=== PATIENT | female | born 1980 | race Two or more races ===

== ENCOUNTER 2018-10-23 07:40 | Inpatient (IN) | payer OTHER ==
[~2018-10-23] VITALS: Ht 160 cm; Wt 49.9 kg
[2018-10-23 08:00] VITALS: BP 132/76
--- NOTE | 2018-10-23 08:00 | NUR ---
MS RN RECEIVED A NEW ADMISSION FROM [facility], [place], 38 YEAR OLD FEMALE, CAME IN W/ CC OF ABDOMINAL PAIN, DX OF CHOLELITHIASIS, AWAKE,ALERT,ORIENTED X4,VIA AMBULANCE, WILL MONITOR PATIENT.
[2018-10-23 08:15] VITALS: BP 132/76
--- NOTE | 2018-10-23 08:25 | NUR ---
MS FLUX CORE WELDER DONE, LYNDA CORTES FOR ADMISSION ORDER, IN THE MEETING AT THIS TIME.
[2018-10-23] MEDS ORDERED: MORPHINE SULFATE INJ 2 MG/ML DISP.SYRIN IV PRN (10:00)
[2018-10-23] MEDS ORDERED: ZOLPIDEM TARTRATE 5 MG TABLET PO PRN (10:00)
[2018-10-23] MEDS ORDERED: Z GUARD REMEDY 2 OZ OINT TP PRN (10:00)
[2018-10-23] MEDS ORDERED: HYDROCODONE/APAP 5/325MG 1 EACH TABLET PO PRN (10:00)
[2018-10-23] MEDS ORDERED: MAGNESIUM HYDROXIDE 30 ML UDC PO PRN (10:00)
--- NOTE | 2018-10-23 10:00 | NUR ---
MS MICHELLE WAS SEEN BY AUSTIN CORTES W/ ORDERS MADE AND CARRIED OUT.
[2018-10-23] MEDS: HYDROMORPHONE INJ 2 MG/ML DISP.SYRIN IV PRN ×2 (10:23→19:47)
[2018-10-23] MEDS: IV NS 0.9% 1,000 ML IV PRN (10:23)
[2018-10-23] MEDS ORDERED: Magnesium 1GM/D5W 100ML PREMIX 100 ML IV SCH (10:27)
[2018-10-23 11:01] LABS: BASOPHILS % (AUTO) 0.6 % (0.0-2.0); EOSINOPHILS % (AUTO) 1.8 % (0.0-6.0); HEMATOCRIT 36 % (33-45); HEMOGLOBIN 12.2 g/dL (11.5-14.8); LYMPHOCYTES % (AUTO) 12.2 % (20.0-44.0); MEAN CORPUSCULAR HGB CONC 34 g/dl (31.0-36.0); MEAN CORPUSCULAR VOLUME 81 fL (82-100); MONOCYTES # (AUTO) 0.4 /CMM (0.1-1.30); MONOCYTES % (AUTO) 5.2 % (2.0-12.0); NEUTROPHILS # (AUTO) 6.3 /CMM (1.8-8.9); NEUTROPHILS % (AUTO) 80.2 % (43.0-81.0); PLATELET COUNT (AUTO) 273 /CMM (150-450); RED BLOOD CELL COUNT(AUTO) 4.43 MIL/uL (4.0-5.2); WHITE BLOOD COUNT (AUTO) 7.9 K/uL (4.3-11.0)
[2018-10-23 11:19] LABS: ALBUMIN 3.3 g/dL (3.4-5.0); BILIRUBIN,TOTAL 0.9 mg/dL (0.2-1.0); CALCIUM, SERUM 8.8 mg/dL (8.5-10.1); CREATININE 0.8 mg/dL (0.6-1.3); TOTAL PROTEIN, SERUM 7.4 g/dL (6.4-8.2)
[2018-10-23 11:26] LABS: POTASSIUM 2.4 mmol/L (3.5-5.1)
[2018-10-23] MEDS ORDERED: PIPERACILLIN /TAZOBACTAM 3.375 G in IV D5W 50 ML IV ONE (12:00)
[2018-10-23] MEDS ORDERED: POTASSIUM CL. PREMIX PERIPHER. 50 ML IV SCH (13:00)
--- NOTE | 2018-10-23 14:00 | NUR ---
MS RN COMPLETED HIDA SCAN, STILL PENDING RESULT, DENIES PLAIN AT THIS TIME, AFTER GIVING DILAUDID 2MG IV AT 1100 AM.
--- NOTE | 2018-10-23 15:00 | NUR ---
MS RN CHANGED IV SITE TO RIGHT HAND G22 W/ [place] VENOUS RETURN.
[2018-10-23 16:03] VITALS: BP 141/71
[2018-10-23] MEDS: PIPERACILLIN /TAZOBACTAM 3.375 G in IV D5W 100 ML IV SCH (18:02)
[2018-10-23] MEDS: Potassium Chloride 10 MEQ, LIDOCAINE HCL/PF 1% 1 ML in IV D5W 50 ML IV SCH ×3 (18:38→21:01)
--- NOTE | 2018-10-23 18:46 | NUR ---
MS RN CANNOT TOLERATE IV K, TEXTED AUSTIN TO PUT ORDER W/ LIDOCANE.
--- NOTE | 2018-10-23 18:47 | NUR ---
MS RN STARTED 2ND BAG OF POTASSIUM,ALL NEEDS ATTENDED. WILL ENDORSED TO MAILROOM COURIER THE 2 BAGS TO COMPLETE IV POTASSIUM.
--- NOTE | 2018-10-23 19:30 | NUR ---
MSRN SEEN GOING BACK TO BED FROM RESTROOM. VERBALIZES PAIN ON HER BACK. DENIES ABD DISCOMFORTS,, NO N/V. VERBALIZES RIGHT HAND PAIN FROM K REPLACEMENT. RIGHT HAND HL 22 GAUGE PATENT, HAVE EXISTING MAINTENANCE IVF NS AT 100 CC/HR, K IV AT 56CC/HR 2ND BAG INFUSING SEPARATELY, INFUSING AT THE SAME TIME, FOR LESS PAIN ON IV SITE. REVIEWED PAIN MGT WITH PATIENT, APPEARS TO UNDERSTAND. DILAUDED 2 MG IVP ADMINISTERED AT 1947 FOR SEVERE BACK PAIN PATIENT STATED. BEDREST INSTRUCTED, V/S STABLE. CLOSELY WATCHED.
[2018-10-23 20:20] VITALS: BP 134/70
--- NOTE | 2018-10-23 21:30 | NUR ---
MSRN INSISTED TO HAVE [place], [place] [employer] PROVIDED, NO NAUSE/VOMITTING. TOLERATED WELL. IVF CONTINUED.
[2018-10-24] MEDS: PIPERACILLIN /TAZOBACTAM 3.375 G in IV D5W 100 ML IV SCH ×3 (01:24→17:41)
[2018-10-24] MEDS: IV NS 0.9% 1,000 ML IV PRN (02:08)
--- NOTE | 2018-10-24 02:13 | NUR ---
MSRN REMAINS PAINFREE SINCE LAST DOSE OF DILAUDED. WAKES UP ON/OFF. NO NEEDS MADE
--- NOTE | 2018-10-24 03:50 | NUR ---
MSRN AWAKENED, PATIENT MOANING, VERBALIZES ABD AND BACK PAIN. DILAUDED 2 MG IVP ADMINISTERED. BEDREST INSTRUCTED IVF CONTINUED.
[2018-10-24] MEDS: HYDROMORPHONE INJ 2 MG/ML DISP.SYRIN IV PRN ×3 (03:51→19:32)
[2018-10-24 06:24] LABS: BASOPHILS % (AUTO) 0.2 % (0.0-2.0); EOSINOPHILS % (AUTO) 0.4 % (0.0-6.0); HEMATOCRIT 35 % (33-45); HEMOGLOBIN 11.5 g/dL (11.5-14.8); LYMPHOCYTES % (AUTO) 8.9 % (20.0-44.0); MEAN CORPUSCULAR HGB CONC 33 g/dl (31.0-36.0); MEAN CORPUSCULAR VOLUME 82 fL (82-100); MONOCYTES # (AUTO) 0.7 /CMM (0.1-1.30); MONOCYTES % (AUTO) 5.8 % (2.0-12.0); NEUTROPHILS # (AUTO) 9.8 /CMM (1.8-8.9); NEUTROPHILS % (AUTO) 84.7 % (43.0-81.0); PLATELET COUNT (AUTO) 268 /CMM (150-450); RED BLOOD CELL COUNT(AUTO) 4.21 MIL/uL (4.0-5.2); WHITE BLOOD COUNT (AUTO) 11.6 K/uL (4.3-11.0)
--- NOTE | 2018-10-24 06:31 | NUR ---
MSRN RELIEF FROM DILAUDED. SLEEPING EASILY AROUSABLE. CLOSELY WATCHED
[2018-10-24 06:53] LABS: CALCIUM, SERUM 8.2 mg/dL (8.5-10.1); CREATININE 1.1 mg/dL (0.6-1.3); MAGNESIUM 1.5 mg/dL (1.8-2.4); PHOSPHORUS 3.2 mg/dL (2.5-4.9)
[2018-10-24 07:03] LABS: POTASSIUM 2.6 mmol/L (3.5-5.1)
--- NOTE | 2018-10-24 07:35 | NUR ---
MS RN RECEIVED ON BED. AWAKE, ALERT,ORIENTED X4,NOT IN ANY FORM OF DISTRESS, RESPIRATIONS EVEN AND UNLABORED,NO SOB NOTED, DENIES PAIN AT THIS TIME, ALL NEEDS ATTENDED.
[2018-10-24 08:00] VITALS: BP 121/71
--- NOTE | 2018-10-24 08:00 | NUR ---
MS RN PATIENT ON CLEAR LIQUIDS, NPO AFTER BREAKFAST, FOR SURGERY TODAY , REMOVAL OF GALL BLADDER BY DR. BRITTON.
--- NOTE | 2018-10-24 09:00 | NUR ---
MS RN NPO AT THIS TIME,ALL NEEDS ATTENDED.
[2018-10-24] MEDS: Potassium Chloride 40 MEQ in IV NS 0.9% 1,000 ML IV PRN (09:22)
--- NOTE | 2018-10-24 11:00 | NUR ---
MS RN WAITING FOR OR SCHED.
[2018-10-24] MEDS: Potassium Chloride 10 MEQ, LIDOCAINE HCL/PF 1% 1 ML in IV D5W 50 ML IV SCH ×2 (11:44→12:27)
[2018-10-24] MEDS: ONDANSETRON HCL/PF 4 MG/2 ML VIAL IVP PRN (11:57)
--- NOTE | 2018-10-24 15:00 | NUR ---
MS RN RECHECKED POTASSIUM LEVEL, 2.6, OR NOTIFIED.
[2018-10-24] MEDS: Magnesium 1GM/D5W 100ML PREMIX 100 ML IV SCH ×2 (15:02→16:11)
--- NOTE | 2018-10-24 15:10 | NUR ---
MS MICHELLE BRITTON CANCELLED SURGERY DUE TO LOW K LEVEL, WILL RECHECK IN AM.
[2018-10-24 16:00] VITALS: BP 137/85
--- NOTE | 2018-10-24 18:36 | NUR ---
MS RN ON BED, NO DISTRESS NOTED.
--- NOTE | 2018-10-24 19:15 | NUR ---
MS RN NOTE RECEIVED PT IN STABLE CONDITION A&O X4, ABLE TO MAKE NEEDS KNOWN. CURRENTLY IN BED. NO SIGNS OF SOB OR DISTRESS, NO C/O PAIN. IV IN L HAND IN PLACE WITH IVF INFUSING, TOLERATING WELL. PT WILL BE NPO AT MIDNIGHT FOR POSS CHOLECYSTECTOMY IN AM. ALL CURRENT NEEDS KNOWN. BED LOW, LOCKED, UPPER RAILS UP, AND CALL LIGHT WITHIN REACH. WILL CONT. TO MONITOR.
--- NOTE | 2018-10-24 19:32 | NUR ---
MS RN NOTE PT C/O ABD PAIN 12/01. DILAUDID 2 MG IV GIVEN. WILL CONT. TO MONITOR.
[2018-10-24 20:00] VITALS: BP 117/63
[2018-10-25] MEDS: PIPERACILLIN /TAZOBACTAM 3.375 G in IV D5W 100 ML IV SCH ×2 (00:49→09:13)
[2018-10-25] MEDS: HYDROMORPHONE INJ 2 MG/ML DISP.SYRIN IV PRN ×5 (01:22→22:40)
--- NOTE | 2018-10-25 01:22 | NUR ---
MS RN NOTE PRN DILAUDID 2 MG IV GIVEN FOR PAIN 9/10 LOCATED IN MEDIAL ABD. WILL CONT. TO MONITOR.
--- NOTE | 2018-10-25 05:35 | NUR ---
MS RN NOTE PRN DILAUDID 2 MG GIVEN FOR PAIN 01/01 IN MEDIAL ABD. WILL CONT. TO MONITOR.
--- NOTE | 2018-10-25 06:25 | NUR ---
MS RN NOTE PT IN STABLE CONDITION A&O X4, ABLE TO MAKE NEEDS KNOWN. CURRENTLY IN BED, RESING. NO SIGNS OF SOB OR DISTRESS, NO C/O PAIN. IV IN R FA IN PLACE WITH IVF INFUSING, TOLERATING WELL. CURRENTLY NPO SINCE MIDNIGHT FOR POSS CHOLECYSTECTOMY DEPENDING ON AM LABS. ALL CURRENT NEEDS KNOWN. BED LOW, LOCKED, UPPER RAILS UP, AND CALL LIGHT WITHIN REACH. WILL CONT. TO MONITOR AND ENDORSE TO NEXT SHIFT FOR GILDA.
[2018-10-25 06:42] LABS: BASOPHILS # (AUTO) 0.1 /CMM (0.0-0.2); BASOPHILS % (AUTO) 0.5 % (0.0-2.0); EOSINOPHILS % (AUTO) 0.4 % (0.0-6.0); HEMATOCRIT 32 % (33-45); HEMOGLOBIN 10.9 g/dL (11.5-14.8); LYMPHOCYTES % (AUTO) 8.9 % (20.0-44.0); MEAN CORPUSCULAR HGB CONC 34 g/dl (31.0-36.0); MEAN CORPUSCULAR VOLUME 82 fL (82-100); MONOCYTES # (AUTO) 0.5 /CMM (0.1-1.30); MONOCYTES % (AUTO) 4.3 % (2.0-12.0); NEUTROPHILS # (AUTO) 9.9 /CMM (1.8-8.9); NEUTROPHILS % (AUTO) 85.9 % (43.0-81.0); PLATELET COUNT (AUTO) 237 /CMM (150-450); RED BLOOD CELL COUNT(AUTO) 3.96 MIL/uL (4.0-5.2); WHITE BLOOD COUNT (AUTO) 11.6 K/uL (4.3-11.0)
[2018-10-25 06:51] LABS: CALCIUM, SERUM 8.8 mg/dL (8.5-10.1); CREATININE 1.2 mg/dL (0.6-1.3); MAGNESIUM 2.1 mg/dL (1.8-2.4); PHOSPHORUS 2.8 mg/dL (2.5-4.9)
[2018-10-25 06:56] LABS: POTASSIUM 2.7 mmol/L (3.5-5.1)
--- NOTE | 2018-10-25 07:09 | NUR ---
MS RN NOTE RECEIVED CRITICAL LAB RESULT K:2.7 FROM LAB. CALLED [facility] CUSTOMER CARE MANAGER TO NOTIFY MD. AWAITING CALL BACK.
--- NOTE | 2018-10-25 07:30 | NUR ---
MS RN RECEIVED ON BED, AWAKE,ALERT,ORIENTED X4,NOT IN ANY FORM OF DISTRESS,RESPIRATIONS EVEN AND UNLABORED,NO SOB NOTED, LUNGS ARE CLEAR,ABDOMEN SOFT,POSITIVE BOWEL SOUNDS,DENIES PAIN AT THIS TIME.WILL MONITOR PATIENT'S CONDITION.
--- NOTE | 2018-10-25 07:45 | NUR ---
MS NR K LEVEL 2.7, DR. BRITTON CANCELLED SURGERY, TO REPLACE POTASSIUM, AWAITING FOR MD TO CALL BACK.
[2018-10-25 08:00] VITALS: BP 141/77
[2018-10-25] MEDS ORDERED: POTASSIUM CHLORIDE 20 MEQ TAB.PRT.SR PO ONE (09:30)
[2018-10-25] MEDS: Potassium Chloride 40 MEQ in IV NS 0.9% 1,000 ML IV PRN ×2 (09:46→20:48)
[2018-10-25] MEDS: ONDANSETRON HCL/PF 4 MG/2 ML VIAL IVP PRN ×2 (09:46→17:10)
[2018-10-25] MEDS: Potassium Chloride 10 MEQ, LIDOCAINE HCL/PF 1% 1 ML in IV D5W 50 ML IV SCH ×2 (11:07→12:22)
--- NOTE | 2018-10-25 15:00 | NUR ---
MS MARTINEZ K PO GIVEN AND REPLACED W/ IV'S.
[2018-10-25 16:00] VITALS: BP 147/86
[2018-10-25 17:03] LABS: CALCIUM, SERUM 9.1 mg/dL (8.5-10.1); CREATININE 1.2 mg/dL (0.6-1.3); POTASSIUM 3.2 mmol/L (3.5-5.1)
[2018-10-25] MEDS: PIPERACILLIN /TAZOBACTAM 3.375 G in IV D5W 50 ML IV SCH ×2 (17:19→23:33)
--- NOTE | 2018-10-25 18:00 | NUR ---
MS MICHELLE RECHECKED K - 3.2 TEXTED A[place]IN W/ ORDERS MADE AND CARRIED OUT.
--- NOTE | 2018-10-25 19:11 | NUR ---
MS RN RECEIVE PT WATCHING TV A/O X 4 CALM NO S/S OF DISTRESS, RESPIRATIONS EVEN AND UNLABORED, SAFETY MEASURES IN PLACE. WILL CONTINUE TO MONITOR
[2018-10-25 20:00] VITALS: BP 141/79
[2018-10-25] MEDS: POTASSIUM CHLORIDE 20 MEQ TAB.PRT.SR PO SCH (20:47)
[2018-10-25 23:30] LABS: APPEARANCE,URINE TURBID (CLEAR); BILIRUBIN,URINE NEGATIVE (NEGATIVE); BLOOD, URINE 1+ Ery/uL (NEGATIVE); COLOR,URINE ORANGE (YELLOW); KETONES,URINE TRACE (NEGATIVE); LEUKOCYTE ESTERASE ,URINE NEGATIVE (NEGATIVE); NITRITE, URINE NEGATIVE (NEGATIVE); PROTEIN,URINE 2+ mg/dl (NEGATIVE); UGLUCOSE NEGATIVE (NEGATIVE)
[2018-10-25 23:38] LABS: BACTERIA,URINE Few /HPF (None Seen); SQUAMOUS EPITHELIAL CELL,UR Few /HPF (None Seen); URINE AMORPHOUS URATE Many /HPF (None Seen); WBC,URINE 0-2 /HPF (0-3)
[2018-10-26] VITALS (9 sets, daily range): BP systolic 108–134; BP diastolic 56–78
[2018-10-26] MEDS: HYDROMORPHONE INJ 2 MG/ML DISP.SYRIN IV PRN ×4 (02:47→22:33)
[2018-10-26] MEDS: PIPERACILLIN /TAZOBACTAM 3.375 G in IV D5W 50 ML IV SCH ×3 (05:04→17:53)
--- NOTE | 2018-10-26 06:10 | NUR ---
MS RN ASLEEP AND EASILY AWAKEN, MAINTAINS NPO AT MIDNIGHT PER M.D. RESPIRATIONS EVEN AND UNLABORED. SLEPT WELL THROUGHOUT THE NIGHT. KEPT CLEAN AND DRY AND COMFORTABLE. NEEDS ATTENDED AND ANTICIPATED, PAIN MEDICATED WITH PRN PAIN MEDICATION WITH RELIEF. SAFETY MEASURES AT ALL TIMES. ENDORSE TO THE NEXT SHIFT.
[2018-10-26 06:39] LABS: CALCIUM, SERUM 8.4 mg/dL (8.5-10.1); MAGNESIUM 1.7 mg/dL (1.8-2.4); PHOSPHORUS 1.8 mg/dL (2.5-4.9); POTASSIUM 3.6 mmol/L (3.5-5.1)
[2018-10-26 06:44] LABS: BASOPHILS % (AUTO) 0.3 % (0.0-2.0); EOSINOPHILS % (AUTO) 0.6 % (0.0-6.0); HEMATOCRIT 31 % (33-45); LYMPHOCYTES # (AUTO) 0.7 /CMM (0.8-4.8); LYMPHOCYTES % (AUTO) 7.6 % (20.0-44.0); MEAN CORPUSCULAR HGB CONC 33 g/dl (31.0-36.0); MEAN CORPUSCULAR VOLUME 83 fL (82-100); MONOCYTES # (AUTO) 0.7 /CMM (0.1-1.30); MONOCYTES % (AUTO) 7.4 % (2.0-12.0); NEUTROPHILS # (AUTO) 8.1 /CMM (1.8-8.9); NEUTROPHILS % (AUTO) 84.1 % (43.0-81.0); PLATELET COUNT (AUTO) 213 /CMM (150-450); RED BLOOD CELL COUNT(AUTO) 3.68 MIL/uL (4.0-5.2); WHITE BLOOD COUNT (AUTO) 9.6 K/uL (4.3-11.0)
--- NOTE | 2018-10-26 07:27 | NUR ---
MS RN OPENING NOTES PATIENT IN AWAKE IN BED RESTING. PATIENT BREATHING ON ROOM AIR SATURATING >95% O2. PATIENT BREATHING IS EVEN AND UNLABORED. PATIENT IN NO ACUTE DISTRESS. NO SOB NOTED. NPO STATUS MAINTAINED. PATIENT AWAITING SCHEDULED SURGERY AT 0930. PATIENT BED IS LOCKED AND IN LOWEST POSITION. SAFETY PRECAUTIONS IN PLACE. PATIENT CALL LIGHT WITHIN REACH. WILL CONTINUE TO MONITOR.
--- NOTE | 2018-10-26 09:00 | NUR ---
MS RN NOTES PER JUDICIAL ADMINISTRATIVE ASSISTANT [place]IN CORTES AND SURGERY GIVE KDUR 60 MEQ ORDERED. PATIENT IN NO ACUTE DISTRESS. WILL CONTINUE TO MONITOR.
[2018-10-26] MEDS: POTASSIUM CHLORIDE 20 MEQ TAB.PRT.SR PO SCH (09:01)
--- NOTE | 2018-10-26 09:30 | NUR ---
MS RN NOTES PATIENT HEADED FOR SURGERY. CONSENT AND PRECHECKLIST IN CHART. VITAL SIGNS STABLE. PATIENT IN NO ACUTE DISTRESS.
[2018-10-26] MEDS: Magnesium 1GM/D5W 100ML PREMIX 100 ML IV SCH ×4 (10:00→16:11)
[2018-10-26] MEDS ORDERED: BUPIVACAINE 0.5 % PF 150 MG/30 ML VIAL ONE (10:06)
[2018-10-26] MEDS ORDERED: FENTANYL PF 250MCG/5ML AMPUL ONE ×2 (10:30)
[2018-10-26] MEDS ORDERED: MIDAZOLAM HCL 2 MG/2ML VIAL ONE (10:30)
[2018-10-26] MEDS ORDERED: ROCURONIUM BROMIDE 50 MG/5 ML ONE (10:31)
[2018-10-26] MEDS ORDERED: FAMOTIDINE/PF INJ 20 MG/2 ML VIAL IV ONE (10:31)
[2018-10-26] MEDS ORDERED: BUPIVACAINE MPF 0.5% W/EPI INJ 30 ML VIAL ONE (10:32)
--- NOTE | 2018-10-26 13:26 | NUR ---
MS RN NOTES RECEIVED PATIENT FROM SURGERY. PATIENT IN BED SLEEPING. PATIENT BREATHING ON OXYGEN NC >95% 02. PATIENT VITAL SIGNS WNL. PATIENT IN NO ACUTE DISTRESS. JAMIE DRAIN NOTED. WILL CARRY OUT NEW ORDERS. WILL CONTINUE TO MONITOR.
--- NOTE | 2018-10-26 14:55 | NUR ---
MS RN NOTES PATIENT VITALS ARE WNL. PATIENT IS SLEEPING INTERMITTENTLY. PATIENT VERBALIZES NEEDS. NEEDS ADDRESSED. PATIENT WOUND DRESSINGS DRY AND INTACT. WILL CONTINUE TO MONITOR.
[2018-10-26] MEDS ORDERED: K PHOS NEUTRAL 250 MG TABLET PO ONE (17:30)
--- NOTE | 2018-10-26 18:41 | NUR ---
MS RN CLOSING NOTES PATIENT IN BED RESTING COMFORTABLY. PATIENT NO LONGER ON NC 2L, PATIENT STATES SHE DOES NOT NEED IT ANYMORE. PATIENT IS BREATHING ON ROOM AIR AND SATURATING >95% O2. PATIENT BREATHING IS EVEN AND UNLABORED. NO SOB NOTED. JAMIE DRAIN EMPTIED 60CC, SEROSANGUINEOUS. DRESSINGS DRY AND INTACT. ALL NURSING NEEDS MET. PATIENT KEPT CLEAN AND DRY. PATIENT VERBALIZED NEEDS AND NEED ADDRESSED. IV IS INTACT. PATIENT IS NO PAIN AT THIS TIME. PATIENT BED IS LOCKED AND IN LOWEST POSITION. CALL LIGHT WITHIN REACH. WILL ENDORSE CARE TO PM SHIFT FOR GILDA.
--- NOTE | 2018-10-26 19:00 | NUR ---
RN noy opening notes Received Pt from morning nurse. Pt is alert and oriented X4. Pt is awake and laying in bed comfortably. Respiration is normal. NO SOB. No nausea or vomiting. Pt denies pain or discomfort at this time. IV sites R hand # 22 is intact, patent and infusing well. JAMIE drain at right stomach is intact, and patent. Dressing on the abdomen clean, dry and intact. Informed and instructed Pt to use incentive spirometer. Pt verbalize understanding. Instructed to call. Safety precautions is maintained. Bed at low position, brakes on, bed side rails upX2 and call light is within reach. Will continue for GILDA.
--- NOTE | 2018-10-26 22:43 | NUR ---
RN medsurg notes Administered Dilaudid 2 mg as ordered for abdominal pain 9/10 on pain scale per Pt requested. Instructed to call and will continue to monitor.
--- NOTE | 2018-10-26 23:59 | NUR ---
RN medsurg notes Pt is resting in laying in bed comfortably with eyes closed. Awaken easily. No SOB. No S/S of distress noted. Instructed to call. Call light is within reach. Will continue to monitor.
--- NOTE | 2018-10-27 | NUR ---
RN medsur notes Unable to mixed Zosyn because the liquid got stuck into the vial and hard to pulled the liquid from the vial. Able to used Zosyn from 10/26/18 (due at 1200). Informed and notified the charge nurse MICHELLE Montero and agreed to use it.
[2018-10-27] MEDS: PIPERACILLIN /TAZOBACTAM 3.375 G in IV D5W 50 ML IV SCH ×5 (00:06→23:04)
--- NOTE | 2018-10-27 01:00 | NUR ---
MICHELLE villafuerte notes Pt is awake and laying in bed comfortably. Instructed and informed Pt to use incentive spirometer. Explained the benefits of using incentive spirometer. Pt agreed and used 10 times. Pt verbalized understanding and tolerated activity well. Will continue to monitor.
[2018-10-27 02:49] VITALS: BP 141/81
[2018-10-27] MEDS: HYDROMORPHONE INJ 2 MG/ML DISP.SYRIN IV PRN ×5 (02:52→20:47)
--- NOTE | 2018-10-27 02:52 | NUR ---
RN medsurangela notes Pt is complaining of abdominal pain 9/10 on pain scale. Administered Dilaudid 2mg IV push as ordered. VS as follows: BP 141/81, P 76, RESP 18, TEMP 98.0, O2 SAT 99% in room air. Instructed to call. Will continue to monitor.
--- NOTE | 2018-10-27 06:53 | NUR ---
RN medsurg closing notes Pt is alert and oriented x4. Pt is laying in bed comfortably. No SOB. No nausea or vomiting. VS is stable. Afebrile. IV sites at right hand is intact, patent and infusing well. JAMIE drain on right abdomen drain 40 ml serousanguines. Instructed to use incentive spirometer. Pt tolerated activity well. Routine meds were given including pain meds as ordered. All needs met. Safety precautions is maintained. Bed at low position and call light is within reach. Will endorse to morning nurse for GILDA.
[2018-10-27 06:58] LABS: BASOPHILS % (AUTO) 0.1 % (0.0-2.0); HEMATOCRIT 29 % (33-45); HEMOGLOBIN 9.5 g/dL (11.5-14.8); LYMPHOCYTES # (AUTO) 0.8 /CMM (0.8-4.8); LYMPHOCYTES % (AUTO) 8.6 % (20.0-44.0); MEAN CORPUSCULAR HGB CONC 33 g/dl (31.0-36.0); MEAN CORPUSCULAR VOLUME 83 fL (82-100); MONOCYTES # (AUTO) 0.6 /CMM (0.1-1.30); MONOCYTES % (AUTO) 6.5 % (2.0-12.0); NEUTROPHILS # (AUTO) 7.8 /CMM (1.8-8.9); NEUTROPHILS % (AUTO) 84.8 % (43.0-81.0); PLATELET COUNT (AUTO) 250 /CMM (150-450); RED BLOOD CELL COUNT(AUTO) 3.45 MIL/uL (4.0-5.2); WHITE BLOOD COUNT (AUTO) 9.2 K/uL (4.3-11.0)
[2018-10-27 07:19] LABS: ALBUMIN 2.1 g/dL (3.4-5.0); BILIRUBIN,TOTAL 0.5 mg/dL (0.2-1.0); CALCIUM, SERUM 8.9 mg/dL (8.5-10.1); CREATININE 1.2 mg/dL (0.6-1.3); PHOSPHORUS 2.5 mg/dL (2.5-4.9); POTASSIUM 4.3 mmol/L (3.5-5.1); TOTAL PROTEIN, SERUM 6.6 g/dL (6.4-8.2)
--- NOTE | 2018-10-27 07:30 | NUR ---
RN OPENING NOTE PT WAS RECEIVED RESTING IN BED AT LOWEST AND LOCKED POSITION WITH SIDE RAILS UP X2, A/OX4 BREATHING EVEN AND UNLABORED ON RA, NO S/S OF ANY DISTRESS OR PAIN NOTED AT THIS TIME, IV IS PATENT AND INTACT, NOTED TO HAVE JAMIE DRAIN ON RIGHT SIDE OF ABD, S/P CHOLECYSTECTOMY ON 10/26, SAFETY PRECAUTIONS IN PLACE, CALL LIGHT WITHIN REACH, WILL MONITOR PT ACCORDINGLY
--- NOTE | 2018-10-27 07:49 | NUR ---
RN NOTE PT COMPLAINING OF PAIN OF 9 OUT OF 10 ON RIGHT SIDE OF ABD, PRN DOSE OF DILAUDID GIVEN AT THIS TIME, WILL MONITOR PT ACCORDINGLY
[2018-10-27 08:00] VITALS: BP 147/81
[2018-10-27] MEDS: POTASSIUM CHLORIDE 20 MEQ TAB.PRT.SR PO SCH (08:02)
[2018-10-27] MEDS: Potassium Chloride 40 MEQ in IV NS 0.9% 1,000 ML IV PRN (15:18)
[2018-10-27 16:00] VITALS: BP 134/93
--- NOTE | 2018-10-27 18:24 | NUR ---
RN CLOSING NOTE PT IN BED AT LOWEST AND LOCKED POSITION WITH SIDE RAILS UP X2, BREATHING EVEN AND UNLABORED ON RA, NO S/S OF ANY DISTRESS OR PAIN AT THIS TIME, IV IS PATENT AND INTACT, JAMIE DRAIN ON RIGHT SIDE OF ABD WITH 35 ML OUT THIS SHIFT, SAFETY PRECAUTIONS IN PLACE, CALL LIGHT WITHIN REACH, ALL NEEDS ATTENDED TO. WILL ENDORSE TO NIGHT RN FOR GILDA.
--- NOTE | 2018-10-27 19:25 | NUR ---
MS/RN OPENING NOTES PT RECEIVED ASLEEP, RESPONSIVE TO NAME. A/OX4. ON ROOM AIR, BREATHING EVEN AND UNLABORED. DENIES SOB, IN NO ACUTE RESPIRATORY DISTRESS AT THIS TIME. C/O 5/10 ABDOMINAL PAIN BUT IS TOLERABLE AT THIS TIME. WANTS TO WAIT UNTIL HER NEXT DOSE OF IV DILAUDID. ABDOMINAL INCISIONS TO UMBILICUS, MEDIAL UPPER ABDOMEN, RIGHT UPPER ABDOMEN ALL COVERED WITH SURGICAL DRESSING, NO SIGNS OF BLEEDING NOTED. JAMIE DRAIN TO RIGHT LATERAL ABDOMEN IN PLACE AND DRAINING SANGUINOUS FLUID. PT DENIES HAVING FLATUS AND BM AT THIS TIME. IV TO RIGHT HAND PATENT AND INTACT RUNNING IVF ORDERED. DVT PUMPS ON. BED IN LOW/LOCKED POSITION WITH CALL LIGHT IN REACH. HOB ELEVATED AND BILAT. UPPER SIDE RAILS IN PLACE. WILL CONTINUE TO MONITOR
[2018-10-27 20:00] VITALS: BP 150/86
[2018-10-27] MEDS: ACETAMINOPHEN 325 MG TABLET PO PRN (23:04)
[2018-10-28] MEDS: Potassium Chloride 40 MEQ in IV NS 0.9% 1,000 ML IV PRN (04:41)
[2018-10-28] MEDS: HYDROMORPHONE INJ 2 MG/ML DISP.SYRIN IV PRN ×4 (05:00→21:38)
[2018-10-28] MEDS: PIPERACILLIN /TAZOBACTAM 3.375 G in IV D5W 50 ML IV SCH ×3 (05:39→18:11)
[2018-10-28] MEDS: ACETAMINOPHEN 325 MG TABLET PO PRN (07:03)
--- NOTE | 2018-10-28 07:15 | NUR ---
MS/RN NOTE THE PATIENT IS RECEIVED IN BED. ALERT AND ORIENTED X4. ABDOMINAL INCISION WITH DRESSINGS. NO BLEEDING AND DISCHARGE NOTED. RIGHT HAND G 22 AND LEFT WRIST G 20 PATENT AND SALINE LOCKED. BED LOW AND LOCKED. SIDE RAILS UP X3. CALL LIGHT WITHIN REACH. WILL CONTINUE TO MONITOR.
[2018-10-28 07:18] LABS: BASOPHILS % (AUTO) 0.4 % (0.0-2.0); EOSINOPHILS % (AUTO) 1.8 % (0.0-6.0); HEMATOCRIT 28 % (33-45); HEMOGLOBIN 9.1 g/dL (11.5-14.8); LYMPHOCYTES # (AUTO) 1.3 /CMM (0.8-4.8); LYMPHOCYTES % (AUTO) 17.9 % (20.0-44.0); MEAN CORPUSCULAR HGB CONC 33 g/dl (31.0-36.0); MEAN CORPUSCULAR VOLUME 83 fL (82-100); MONOCYTES # (AUTO) 0.6 /CMM (0.1-1.30); MONOCYTES % (AUTO) 8.6 % (2.0-12.0); NEUTROPHILS # (AUTO) 5.3 /CMM (1.8-8.9); NEUTROPHILS % (AUTO) 71.3 % (43.0-81.0); PLATELET COUNT (AUTO) 254 /CMM (150-450); RED BLOOD CELL COUNT(AUTO) 3.34 MIL/uL (4.0-5.2); WHITE BLOOD COUNT (AUTO) 7.4 K/uL (4.3-11.0)
--- NOTE | 2018-10-28 07:24 | NUR ---
MS/RN CLOSING NOTES PT AWAKE, RESTING COMFORTABLY IN BED. REAMAINS ON ROOM AIR, BREATHING EVEN AND UNLABORED. DENIES SOB, ABDOMINAL PAIN MANAGED WITH IV DILAUDID AND TYLENOL. ABDOMINAL INCISIONS WITH SURGICAL DRESSINGS REMAIN C/D/I. NO BLEEDING NOTED. JAMIE DRAIN TO RIGHT LATERAL ABDOMEN IN PLACE AND DRAINING SANGUINOUS FLUID, 20 CC OUT. PT DENIES HAVING FLATUS AND BM DURING SHIFT. IV TO RIGHT HAND PATENT AND INTACT RUNNING IVF ORDERED. IV TO LEFT WRIST PATENT AND INTACT. DVT PUMPS OFF AT THIS TIME PER PT REQUEST. ASSISTED TO BSC. BED IN LOW/LOCKED POSITION WITH CALL LIGHT IN REACH. HOB ELEVATED AND BILAT. UPPER SIDE RAILS IN PLACE. WILL ENDORSE TO DAY SHIFT RN GILDA.
[2018-10-28 07:38] LABS: CALCIUM, SERUM 8.5 mg/dL (8.5-10.1); MAGNESIUM 1.7 mg/dL (1.8-2.4); PHOSPHORUS 3.1 mg/dL (2.5-4.9)
[2018-10-28 08:00] VITALS: BP 156/93
--- NOTE | 2018-10-28 08:00 | NUR ---
MS/RN NOTE JAMIE DRAIN REMOVED BY DR BRITTON. THE PATIENT TOLERATED IT WELL.
[2018-10-28 08:32] VITALS: BP 156/93
[2018-10-28 09:00] VITALS: BP 142/84
[2018-10-28] MEDS: Magnesium 1GM/D5W 100ML PREMIX 100 ML IV SCH ×2 (09:40→10:49)
[2018-10-28] MEDS: POTASSIUM CHLORIDE 20 MEQ TAB.PRT.SR PO SCH (09:47)
[2018-10-28] MEDS ORDERED: CEPH-570 PO (14:54)
[2018-10-28 16:51] VITALS: BP 157/99
--- NOTE | 2018-10-28 18:33 | NUR ---
MS/RN NOTE THE PATIENT ALERT AND ORIENTED X4. IN ROOM AIR AND SATURATION IS AT 97%. DENIES SOB. RESPIRATION REGULAR AND UNLABORED. DENIES PAIN. RIGHT HAND G 20 PATENT AND IV ANTIBIOTIC INFUSING PER ORDER AND NO S/S INFILTRATION NOTED. BED LOW AND LOCKED. SIDE RAILS UP X3. CALL LIGHT WITHIN REACH. WILL ENDORSE TO REPRODUCTION ORDER PROCESSOR.
--- NOTE | 2018-10-28 18:38 | NUR ---
MS/RN NOTE SHANNAN CORTES IS MADE AWARE THAT THE PATIENT IS NOT LEAVING THE HOSPITAL TODAY BECAUSE SHE IS HOMELESS AND HAS NO PLACE TO GO. CASE MANAGEMENT IS AWARE.
--- NOTE | 2018-10-28 19:53 | NUR ---
RN MS OPENING NOTES PT IN BED, AWAKE ALERT ORIENTED X4, BREATHING EVEN AND UNLABORED ON ROOM AIR. NO COMPLAINT OF PAIN OR DISCOMFORT AT THIS TIME. IV ACCESS ON THE R HAND 22G PATENT AND FLUSHING. BED IN LOWEST LOCKED POSITION, CALL LIGHT WITHIN REACH AT ALL TIMES, WILL CONTINUE TO MONITOR FREQUENTLY.
[2018-10-28 20:19] VITALS: BP 178/98
[2018-10-29] MEDS: PIPERACILLIN /TAZOBACTAM 3.375 G in IV D5W 50 ML IV SCH ×3 (00:01→12:00)
[2018-10-29] MEDS: ACETAMINOPHEN 325 MG TABLET PO PRN (00:40)
[2018-10-29] MEDS: HYDROMORPHONE INJ 2 MG/ML DISP.SYRIN IV PRN (05:24)
--- NOTE | 2018-10-29 06:18 | NUR ---
RN MS CLOSING NOTES PT REMAINS IN BED, AWAKE ALERT ORIENTED X4, BREATHING EVEN AND UNLABORED ON ROOM AIR. ADMINISTERED DILAUDID 2MG, RECENTLY, NO COMPLAINT OF PAIN OR DISCOMFORT AT THIS TIME. IV ACCESS ON THE R HAND 22G PATENT AND FLUSHING. BED IN LOWEST LOCKED POSITION, CALL LIGHT WITHIN REACH AT ALL TIMES, WILL ENDORSE TO DAY NURSE FOR GILDA, PT TO BE DC
--- NOTE | 2018-10-29 07:25 | NUR ---
MS/RN OPENING NOTE THE PATIENT IS RECEIVED IN BED. AWAKE, ALERT AND ORIENTED X4. IN ROOM AIR AND DENIES SOB. RESPIRATION REGULAR AND UNLABORED. DENIES PAIN. THE PATIENT IN NO APPARENT DISTRESS. ABDOMINAL INCISIONS COVERED WITH DRESSINGS AND NO BLEEDING NOTED. ABDOMEN SOFT AND NON-DISTENDED. RIGHT HAND G 22 PATENT AND SALINE LOCKED. BED LOW AND LOCKED. SIDE RAILS UP X3. CALL LIGHT WITHIN REACH. WILL CONTINUE TO MONITOR.
[2018-10-29 08:40] VITALS: BP 157/107
[2018-10-29] MEDS: POTASSIUM CHLORIDE 20 MEQ TAB.PRT.SR PO SCH (09:17)
[2018-10-29] MEDS: Magnesium 1GM/D5W 100ML PREMIX 100 ML IV SCH ×2 (10:21→11:36)
--- NOTE | 2018-10-29 10:42 | NUR ---
Social service consult requested by SHANNAN Carroll for homelessness and pt. wanting [facility] placement. Pt. is a 38 year old female who was admitted to [facility] for cholecystitis. JEFFREY met with pt. bedside. Pt. is alert and oriented x 4. Pt. is ambulatory. Pt. is cooperative with SW during the assessment. Pt. states she has been homeless for the past 3 months. Pt. states she made bad choices that made her homeless. Pt. was living with family prior to being homeless. Pt. receives food stamps and is process of reinstating her General Relief. 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 Pt. is interested in [facility] placement. JEFFREY contacted [facility] and spoke with Lacey who informed SW they do have beds available and to send pt. to the [facility], the sooner the better. SW informed pt. that a bed is available at [facility] located at [address] [place] [address], in [place]. Pt. informed SW she doesn't know how to get there. SW informed pt. she will get her a TAP card and bus directions to the [facility]. The following directions were provided to the pt.: 0:56 AM My [address] Walk 0.7 mi (15 mins) 11:16 AM [place] / [place] [address] towards [place] [facility] in 27 min 24 sec 11:39 AM [place] / [place] Station Walk 0.1 mi (3 mins) 11:39 AM [place] [address] Red Line towards [facility] / [facility] 12:[address] [place] [address] 0.6 mi (13 mins) 12:13 PM [facility], [address] [place] [id number] Pt. was also provided with the following homeless resources: [facility], [address] [address] ; [facility], [address] [place] [address], [place] ; [facility] Homeless Resource Directory which includes food stamps, transitional housing, showers and hot meals etc; Mental Health clinics such as [facility] ; [facility] ; Health clinics;[facility] and Alcohol treatment centers such as [facility], ; [facility] Substance Abuse Hotline and [facility] . No other social service needs are requested at this time. Homeless Waiver form to be signed by the pt. upon discharge. SW gave Homeless Waiver form to pt's RN Lynette for pt. to sign during discharge. SW is available, if needed.
--- NOTE | 2018-10-29 12:55 | NUR ---
MS/RN NOTE THE PATIENT REFUSED DISCHARGE PICTURES TO BE TAKEN. EXPLAINED RISKS AND BENEFITS BUT THE PATIENT STILL REFUSED.
--- NOTE | 2018-10-29 13:10 | NUR ---
MS/RN NOTE THE PATIENT ALERT AND ORIENTED X4. IN ROOM AIR AND SATURATION IS AT 97%. DENIES SOB. RESPIRATION REGULAR AND UNLABORED. DENIES PAIN. THE PATIENT IN NO APPARENT DISTRESS. DISCHARGE EDUCATION PROVIDED AND THE PATIENT VERBALIZED UNDERSTANDING. THE PATIENT IS PROVIDED PRESCRIPTION FORM AND COPY IS SAVED IN THE CHART. THE PATIENT GOING TO [facility]. THE PATIENT LEFT THE HOSPITAL IN STABLE CONDITION.
== END 2018-10-29 13:10 | disposition home or self-care (01) | DRG 263 ==
LOC: MED 07:40
PROVIDERS: ADMIT Nurse Practitioner Acute Care; ATTEND Nurse Practitioner Acute Care
PROC: 0FT44ZZ Resection of Gallbladder, Percutaneous Endoscopic Approach (ICD-10-PCS; principal; 2018-10-26)
DX: K80.00 Calculus of gallbladder with acute cholecystitis without obstruction (principal); N12 Tubulo-interstitial nephritis, not specified as acute or chronic; E66.9 Obesity, unspecified; F32.9 Major depressive disorder, single episode, unspecified; I10 Essential (primary) hypertension; F41.9 Anxiety disorder, unspecified; N39.0 Urinary tract infection, site not specified; Z68.1 Body mass index [BMI] 19.9 or less, adult; F17.210 Nicotine dependence, cigarettes, uncomplicated; E87.6 Hypokalemia; F15.90 Other stimulant use, unspecified, uncomplicated
CPT/HCPCS: 36415; 78226; 80048-TC; 80053-TC; 80061-TC; 81000-TC; 82088; 83735-TC; 84100-TC; 84132-TC; 84702-TC; 84703-TC; 85025-TC; 87070-TC; 87075-TC; 87081-TC; 87086-TC; 87186-TC; 88304-TC; 94799-TC; A9537; G0378; J0690; J1100; J1170; J1885; J2250; J2405; J2543; J2704; J2710; J2765; J3010; J3475; J3480; J3490; J7030; J7040; J7060

== ENCOUNTER 2018-11-08 17:48 | Emergency (ER) | payer OTHER ==
[~2018-11-08] VITALS: Ht 157.5 cm; Wt 100.2 kg
[~2018-11-08 17:48] MED LIST: CEPH-570 PO
[2018-11-08 18:00] VITALS: BP 157/97
== END 2018-11-08 18:58 | disposition home or self-care (01) ==
LOC: ER 17:51
DX: L03.311 Cellulitis of abdominal wall (principal); I10 Essential (primary) hypertension; Z90.49 Acquired absence of other specified parts of digestive tract; Z48.01 Encounter for change or removal of surgical wound dressing